=== PATIENT | male | born 1985 | race Caucasian/White ===

== ENCOUNTER 2025-03-18 18:27 | Emergency (ER) | payer OTHER ==
[~2025-03-18] VITALS: Ht 172.7 cm; Wt 73.0 kg
[2025-03-18 18:30] VITALS: O2SAT 99
[2025-03-18] MEDS: ONDANSETRON 4MG ODT PO ONE (20:19)
[2025-03-18] MEDS: HYDROCODONE/ACETAMINOPHEN 5/325MG TABLET PO ONE (20:19)
[2025-03-18] MEDS ORDERED: METH-653 MT (20:58)
[2025-03-18] MEDS ORDERED: IBUP-2028 MT (20:58)
[2025-03-18] MEDS ORDERED: TOPUD PO (20:58)
[2025-03-18] MEDS ORDERED: LIDO-53 TP (20:58)
[2025-03-18] MEDS: IBUPROFEN 600MG TABLET PO ONE (21:00)
[2025-03-18 21:10] VITALS: BP 134/80; PULSE 58; RESP 16; TEMP 36.6; O2SAT 100
== END 2025-03-18 21:48 | disposition home or self-care (01) ==
LOC: ER 18:27
DX: S46.912A Strain of unspecified muscle, fascia and tendon at shoulder and upper arm level, left arm, initial encounter (principal); M48.02 Spinal stenosis, cervical region; V43.52XA Car driver injured in collision with other type car in traffic accident, initial encounter; Y93.89 Activity, other specified; Y92.410 Unspecified street and highway as the place of occurrence of the external cause; Y99.9 Unspecified external cause status
CPT/HCPCS: 99284; 70450; 71045; 73030; 73060; 70486; 72125; Q0162; A4565